=== PATIENT | female | born 1995 ===

== ENCOUNTER 2017-02-06 18:40 | Emergency (ER) | payer BC, MEDICAID ==
[2017-02-06 18:40] VITALS: BMI 25.9
[2017-02-06 19:19] VITALS: O2SAT 98
[2017-02-06] MEDS ORDERED: Sodium Chloride 0.9% 1,000 ML IV STA (20:02)
[2017-02-06] MEDS ORDERED: Iohexol 240 (50 ml) PO STA (20:02)
--- NOTE | 2017-02-06 20:02 | ED PDOC ---
HPI: Abdomen Time Seen by Provider: 02/06/17 19:21 Chief Complaint (Nursing): Abdominal Pain Chief Complaint (Provider): Abdominal pain History Per: Patient History/Exam Limitations: no limitations Onset/Duration Of Symptoms: Days (2) Additional Complaint(s): Patient is a 21 y/o female with a past medical history of hypoglycemia and anemia presenting to the emergency department for abdominal pain ongoing for two days with associated nausea and vomiting. Notes that she is currently on her menses. Denies fever, vaginal discharge, diarrhea, dysuria, hematuria, or other complaints. PCP: none provided. Past Medical History Reviewed: Historical Data, Nursing Documentation, Vital Signs Vital Signs: Last Vital Signs Temp 98.5 F 02/06/17 23:33 Pulse 82 02/06/17 23:33 Resp 17 02/06/17 23:33 BP 111/72 02/06/17 23:33 Pulse Ox 98 02/06/17 23:33 - Medical History PMH: Denies: Chronic Kidney Disease - Family History Family History: States: Unknown Family Hx - Home Medications Home Medications: Ambulatory Orders Medication Instructions Recorded Nitrofurantoin Macrocrystals 100 mg PO BID #13 cap 12/21/15 [Macrobid] Ibuprofen [Motrin] 600 mg PO Q6H PRN #20 tab 02/06/17 Polyethylene Glycol 3350 [Miralax] 17 gm PO DAILY PRN #1 bottle 02/06/17 - Allergies Allergies/Adverse Reactions: Allergies Allergy/AdvReac Type Severity Reaction Status Date / Time No Known Allergies Allergy Verified 11/08/13 23:02 Review of Systems ROS Statement: Except As Marked, All Systems Reviewed And Found Negative Constitutional: Negative for: Fever, Chills ENT: Negative for: Ear Pain, Ear Discharge, Nose Pain, Nose Discharge, Nose Congestion, Mouth Swelling, Throat Pain, Throat Swelling Cardiovascular: Negative for: Chest Pain, Palpitations Respiratory: Negative for: Cough, Shortness of Breath, Sputum, Wheezing Gastrointestinal: Positive for: Nausea, Vomiting, Abdominal Pain. Negative for : Diarrhea Genitourinary Female: Negative for: Dysuria, Hematuria, Vaginal Discharge Physical Exam - Reviewed Nursing Documentation Reviewed: Yes Vital Signs Reviewed: Yes - Physical Exam Appears: Positive for: Uncomfortable (mild painful distress) Head Exam: Positive for: ATRAUMATIC, NORMAL INSPECTION, NORMOCEPHALIC Skin: Positive for: Normal Color, Warm, Dry Eye Exam: Positive for: Normal appearance Neck: Positive for: Normal Cardiovascular/Chest: Positive for: Regular Rate, Rhythm Respiratory: Negative for: Accessory Muscle Use, Respiratory Distress Gastrointestinal/Abdominal: Positive for: Bowel Sounds, Soft, Tenderness (LUQ). Negative for: Distended, Guarding, Rebound Extremity: Positive for: Normal ROM Neurologic/Psych: Positive for: Alert, Oriented (x3) - Laboratory Results Result Diagrams: 02/06/17 20:18 02/06/17 20:18 - ECG O2 Sat by Pulse Oximetry: 98 (RA) Pulse Ox Interpretation: Normal Medical Decision Making Medical Decision Making: Time: 19:37 Initial impression: Appendicitis, colitis, gastroenteritis Initial plan: VBG Shock Panel Abdominal/pelvic CT scan with PO and IV contrast Labs: CMP, Lipase, CBC, PTT, Prothrombin Time Tylenol 650 mg PO Iohexol 50 mL PO Zofran 4 mg IV Normal Saline 1 L IV Blood Culture Urine Culture ED Urine Dipstick ED Urine Influenza test Urinalysis Reevaluation Accession No. 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 no. Patient Name: CARLY WASHINGTON Pt. Address: [address] [place] [address]. Rec #: [id number] [place] [address]: Rakesh LÓPEZ,Luna Baez Pt CELL Order Location: [facility] : 1995 Female Age: 21 Order #: [id number] Reason for exam: RLQ/LUQ pain, fever, v/d CT Scan ABD PELVIS PO IV CONTRAST Exam Date: 02/06/17 This imaging exam was performed at [facility] EXAM: CT Abdomen and Pelvis With Intravenous Contrast CLINICAL HISTORY: 21 years old, female; Pain; Abdominal pain; Localized; Lower; Additional info: Rlq/luq pain, fever, v/d TECHNIQUE: Axial computed tomography images of the abdomen and pelvis with intravenous contrast. All CT scans at this facility use one or more dose reduction techniques, viz.: automated exposure control; ma/kV adjustment per patient size (including targeted exams where dose is matched to indication; i.e. head); or iterative reconstruction technique. Coronal and sagittal reformatted images were created and reviewed. CONTRAST: 90 mL of [id number] administered intravenously. COMPARISON: No relevant prior studies available. FINDINGS: Lower thorax: The bilateral lung bases are clear. ABDOMEN: Liver: The liver is enlarged and demonstrates diffuse fatty infiltration. Gallbladder and bile ducts: The gallbladder is decompressed, without calcified stones. No significant intra- or extrahepatic biliary ductal dilation. Pancreas: Enhances homogeneously. No ductal dilation. No discrete mass. Spleen: No acute findings. Adrenals: No acute findings. Kidneys and ureters: No acute findings. No hydronephrosis or renal calculi. No discrete solid mass. PELVIS: Bladder: No acute findings. Reproductive: The uterus is anteverted and anteflexed. Multiple follicles are identified within the left ovary. The right ovary is not definitively visualized. Appendix: The air and contrast filled appendix is of normal caliber (series 3, image 80) . ABDOMEN and PELVIS: Stomach and bowel: Aerated stool is identified from the level of the transverse colon to the rectum, suggesting constipation. No significant mucosal thickening. Peritoneum: No significant fluid collection. No free air. Lymph nodes: No pathologically enlarged lymph nodes. Vasculature: Unremarkable. Bones: No acute fracture. IMPRESSION: Findings suggesting significant constipation, as detailed above. Dictated By: Janice Gaviria MD Dictated Date/Time: 02/06/172319 Signed By: Janice Gaviria MD Date Signed: 2319 Transcribed By: NGUYEN Transcribe Date/Time : 11/29/17 2320 RUBELMD/VRD Scribe Attestation: Documented by Sowmya Rasmussen, acting as a scribe for Luna Cameron MD. Provider Scribe Attestation: All medical record entries made by the Scribe were at my direction and personally dictated by me. I have reviewed the chart and agree that the record accurately reflects my personal performance of the history, physical exam, medical decision making, and the department course for this patient. I have also personally directed, reviewed, and agree with the discharge instructions and disposition. Disposition - Clinical Impression Clinical Impression: Constipation, Fever - Disposition Referrals: [facility] [Outside] Elvira Ray MD [Family Provider] - Disposition: Routine/Home Disposition Time: 23:31 Condition: STABLE Additional Instructions: FOLLOW-UP WITH PMD WITHIN 2 DAYS FOR REEVALUATION. Prescriptions: Ibuprofen [Motrin] 600 mg PO Q6H PRN #20 tab PRN Reason: Pain, Moderate (4-7) Polyethylene Glycol 3350 [Miralax] 17 gm PO DAILY PRN #1 bottle PRN Reason: Constipation Instructions: Constipation (ED), Fever in Adults (ED) Forms: [employer] (Cuban)
[2017-02-06 20:25] LABS: VENOUS BLOOD GAS BASE EXCESS -0.4 mmol/L (0.0-2.0); VENOUS BLOOD GAS PCO2 42 mmHg (40-60); VENOUS BLOOD PH 7.38 (7.32-7.43)
[2017-02-06] MEDS ORDERED: Iohexol 240 (50 ml) ONE (20:26)
[2017-02-06 20:37] LABS: BASO % 0.2 % (0.0-2.0); EOS % 0.2 % (0.0-4.0); HEMATOCRIT 40.3 % (34.0-47.0); LYMPH # 0.4 K/uL (1.0-4.3); LYMPH % 6.3 % (20.0-40.0); MEAN CELL VOLUME 89.6 fl (81.0-99.0); MEAN CORPUSCULAR HEMOGLOBIN 29.2 pg (27.0-31.0); MEAN CORPUSCULAR HGB CONC 32.6 g/dL (33.0-37.0); MEAN PLATELET VOLUME 10.9 fl (7.2-11.7); MONO # 0.4 K/uL (0.0-0.8); MONO % 5.5 % (0.0-10.0); NEUT # 6.1 K/uL (1.8-7.0); NEUT % 87.8 % (50.0-75.0); NRBC % 0.1 % (0.0-0.0); PLATELET COUNT 163 K/uL (130-400); RED CELL DISTRIBUTION WIDTH 14.9 % (11.5-14.5)
[2017-02-06 20:42] LABS: ALKALINE PHOSPHATASE 87 U/L (38-126); ALT/SGPT 29 U/L (9-52); AST/SGOT 22 U/L (14-36); BLOOD UREA NITROGEN 11 mg/dl (7-17); CALCIUM 9.1 mg/dL (8.4-10.2); CARBON DIOXIDE 24 mmol/L (22-30); CHLORIDE 104 mmol/L (98-107); GFR AFRICAN-AMERICAN > 60; GLUCOSE,RANDOM 96 mg/dL (65-105); LIPASE 45 U/L (23-300); POTASSIUM 3.7 MMOL/L (3.6-5.0); SODIUM 141 mmol/l (132-148); TOTAL PROTEIN 8.4 G/DL (6.3-8.2)
[2017-02-06 21:01] LABS: PARTIAL THROMBOPLASTIN TIME 35.6 Seconds (25.6-37.1)
[2017-02-06 21:06] LABS: ALB/GLOB RATIO 1.3 (1.0-2.1)
[2017-02-06 21:35] LABS: NEUTROPHIL 81 % (42-75); TOTAL CELLS COUNTED 100
[2017-02-06] MEDS ORDERED: Iohexol 300 100 ML IJ ONE (21:58)
[2017-02-06] MEDS ORDERED: Sodium Chloride 0.9% 50 ML IV ONE (21:58)
[2017-02-06 22:57] LABS: URINE BACTERIA RARE (<OCC); URINE BILIRUBIN NEGATIVE (NEGATIVE); URINE BLOOD LARGE (NEGATIVE); URINE COLOR YELLOW (YELLOW); URINE GLUCOSE (UA) NEG (Normal); URINE KETONE NEGATIVE (NEGATIVE); URINE LEUKOCYTE ESTERASE NEG Leu/uL (Negative); URINE PROTEIN NEGATIVE (NEGATIVE); URINE UROBILINOGEN 0.2-1.0 mg/dL (0.2-1.0); WBC URINE 2 /hpf (0-5)
[2017-02-06 23:03] LABS: RBC URINE < 1 /hpf (0-3)
--- NOTE | 2017-02-06 23:20 | CT ---
EXAM: CT Abdomen and Pelvis With Intravenous Contrast CLINICAL HISTORY: 21 years old, female; Pain; Abdominal pain; Localized; Lower; Additional info: Rlq/luq pain, fever, v/d TECHNIQUE: Axial computed tomography images of the abdomen and pelvis with intravenous contrast. All CT scans at this facility use one or more dose reduction techniques, viz.: automated exposure control; ma/kV adjustment per patient size (including targeted exams where dose is matched to indication; i.e. head); or iterative reconstruction technique. Coronal and sagittal reformatted images were created and reviewed. CONTRAST: 90 mL of [id number] administered intravenously. COMPARISON: No relevant prior studies available. FINDINGS: Lower thorax: The bilateral lung bases are clear. ABDOMEN: Liver: The liver is enlarged and demonstrates diffuse fatty infiltration. Gallbladder and bile ducts: The gallbladder is decompressed, without calcified stones. No significant intra- or extrahepatic biliary ductal dilation. Pancreas: Enhances homogeneously. No ductal dilation. No discrete mass. Spleen: No acute findings. Adrenals: No acute findings. Kidneys and ureters: No acute findings. No hydronephrosis or renal calculi. No discrete solid mass. PELVIS: Bladder: No acute findings. Reproductive: The uterus is anteverted and anteflexed. Multiple follicles are identified within the left ovary. The right ovary is not definitively visualized. Appendix: The air and contrast filled appendix is of normal caliber (series 3, image 80) . ABDOMEN and PELVIS: Stomach and bowel: Aerated stool is identified from the level of the transverse colon to the rectum, suggesting constipation. No significant mucosal thickening. Peritoneum: No significant fluid collection. No free air. Lymph nodes: No pathologically enlarged lymph nodes. Vasculature: Unremarkable. Bones: No acute fracture. IMPRESSION: Findings suggesting significant constipation, as detailed above.
[2017-02-06 23:44] VITALS: BP 111/72; PULSE 82; RESP 17; TEMP 98.5
== END 2017-02-06 23:45 | disposition home or self-care (01) ==
LOC: H.ER 18:40
DX: K59.00 Constipation, unspecified (principal); K52.9 Noninfective gastroenteritis and colitis, unspecified; R50.9 Fever, unspecified
CPT/HCPCS: 74177; 80053; 81003; 81025; 82803; 83690; 84703; 85025; 85610; 85730; 87040; 87086; 87804; 96374; 99284; J2405; J7040; Q9966; Q9967